=== PATIENT | male | born 1985 | race Caucasian/White ===

== ENCOUNTER 2024-02-23 07:18 | Emergency (ER) | payer OTHER, SELFPAY ==
[2024-02-23 07:25] VITALS: BP 127/81; PULSE 71; TEMP 36.9; O2SAT 97; BMI 27.4
--- NOTE | 2024-02-23 07:46 | ED.EYEPROB1 ---
HPI - Eye Problem General Chief complaint: Eye Problems Stated complaint: RIGHT EYE IRRITATION Time Seen by Provider: 02/23/24 07:33 Source: patient Mode of arrival: walk-in Limitations: no limitations History of Present Illness HPI Narrative: 39-year-old male presents to the emergency department for chief complaint of right eye redness and drainage. It began yesterday. He has no recollection of any foreign bodies going into his eye and there were no chemicals or other foreign bodies that went into his eye. When he awoke today his eye was matted shut. It is his right eye only, not the left. Symptoms are continuous. Related Data Previous Rx's ?Medication ?Instructions ?Recorded sulfacetamide sodium 10 % eye drops 2 drp ophthalmic (eye) Q4H #15 mL 02/23/24 Allergies Allergy/AdvReac Type Severity Reaction Status Date / Time No Known Drug Allergies Allergy Verified 02/23/24 07:25 Review of Systems ROS Narrative A ten point review of systems is negative except as noted above. PFSH PFS Medical History (Updated 02/23/24 @ 07:45 by Odilon Joyner MD) No pertinent past medical history ?Z78.9 - Other specified health status (ICD-10) Surgical History (Updated 02/23/24 @ 07:33 by Sanket Bowers) No pertinent past surgical history ?Z78.9 - Other specified health status (ICD-10) Exam Narrative Exam Narrative: Nurses note and vital signs reviewed and patient is not hypoxic. General: The patient appears well and in no apparent distress. Patient is resting comfortably on cart. Skin: Warm, dry, no pallor noted. There is no rash noted. Head: Normocephalic, atraumatic Eye: Left eye is normal. The right conjunctiva is injected. No foreign body is found including with lid eversion. Staining and Wilkins lamp examination shows no corneal abrasions. Ears, Nose, Mouth, and Throat: oral mucosa is moist. Nares patent. Cardiovascular: Regular Rate and Rhythm Respiratory: Patient is in no distress, no accessory muscle use, lungs are clear to auscultation, no wheezing, rales or rhonchi Back: non-tender GI: Soft and nontender Musculoskeletal: No joint swelling Neurological: Awake and alert Psychiatric: Cooperative Constitutional Vital Signs, click to edit/add: Last Vital Signs Temp 98.5 F 02/23/24 07:25 Pulse 71 02/23/24 07:25 Resp 20 02/23/24 07:25 BP 127/81 02/23/24 07:25 Pulse Ox 97 02/23/24 07:25 O2 Del Method Room Air 02/23/24 07:25 Course Vital Signs Vital signs: Vital Signs Temperature 98.5 F 02/23/24 07:25 Pulse Rate 71 02/23/24 07:25 Respiratory Rate 20 02/23/24 07:25 Blood Pressure 127/81 02/23/24 07:25 Pulse Oximetry 97 02/23/24 07:25 Oxygen Delivery Method Room Air 02/23/24 07:25 Temperature 98.5 F 02/23/24 07:25 Pulse Rate 71 02/23/24 07:25 Respiratory Rate 20 02/23/24 07:25 Blood Pressure 127/81 02/23/24 07:25 Pulse Oximetry 97 02/23/24 07:25 Oxygen Delivery Method Room Air 02/23/24 07:25 MDM - Eye Problem MDM Narrative Medical decision making narrative: My clinical impression is that he has conjunctivitis. There is no evidence of foreign body or corneal abrasion. Treatment diagnosis and follow-up were discussed with the patient. Differential Diagnosis Differential diagnosis: Likely corneal abrasion, conjunctivitis, hyphema, subconjunctival hemorrhage and corneal ulcer Discharge Plan Discharge Stand Alone Forms: Portal Instructions Chief Complaint: Eye Problems Clinical Impression: Bacterial conjunctivitis Patient Disposition: Home, Self-Care Time of Disposition Decision: 07:45 Condition: Good Mode of Transportation: Private Vehicle Prescriptions / Home Meds: New sulfacetamide sodium 10 % drops 2 drp ophthalmic (eye) Q4H Qty: 15 0RF Print Language: Romansh Instructions: Conjunctivitis (ED) Referrals: MAX SANDERSON [Primary Care Provider] - 1 week
[2024-02-23] MEDS: FLUORESCEIN SODIUM 1 MG STRIP OP (07:55)
== END 2024-02-23 07:58 | disposition home or self-care (01) ==
PROVIDERS: Emergency Provider Emergency Medicine; PCP Family Medicine
DX: H10.89 Other conjunctivitis (principal)
CPT/HCPCS: 99283